=== PATIENT | male | born 1965 | race Caucasian/White ===

== ENCOUNTER 2024-01-24 12:01 | Emergency (ER) | payer OTHER ==
[~2024-01-24] VITALS: Ht 180.3 cm; Wt 95.3 kg
[2024-01-24 12:05] VITALS: BP_SYST 141; PULSE 87; RESP 18; TEMP 97.5
[2024-01-24 14:01] LABS: BASOPHILS % (AUTO) 0.3 % (0.0-2.0); EOSINOPHILS # (AUTO) 0.1 K/uL (0.0-0.4); EOSINOPHILS % (AUTO) 2.8 % (0.0-4.0); HEMATOCRIT 43.3 % (36-54); HEMOGLOBIN 15.1 g/dL (14.0-18.0); LYMPHOCYTES # (AUTO) 0.5 K/uL (1.0-5.5); LYMPHOCYTES % (AUTO) 17.8 % (20.5-51.5); MEAN CORPUSCULAR HEMOGLOBIN 33 pg (27-31); MEAN CORPUSCULAR HGB CONC 35 % (32-36); MEAN CORPUSCULAR VOLUME 95 fL (79.0-98.0); MONOCYTES # (AUTO) 0.3 K/uL (0.0-1.0); MONOCYTES % (AUTO) 10.1 % (1.7-9.3); RED BLOOD CELL COUNT(AUTO) 4.54 MIL/uL (4.2-6.2); WHITE BLOOD COUNT (AUTO) 2.9 K/uL (4.8-10.8)
[2024-01-24 14:21] LABS: INR 1.3 (0.80-1.20); PROTHROMBIN TIME 13.3 SECS (9.5-12.5)
[2024-01-24 14:24] LABS: ANION GAP 8 (5-15); CALCIUM 8.8 mg/dL (8.4-11.0); CARBON DIOXIDE 24 mmol/L (23-29); CHLORIDE 106 mmol/L (98-107); CREATININE 0.92 mg/dL (0.55-1.30); GFR AFRICAN AMERICAN 108 mL/min (>90); GLUCOSE 193 mg/dL (74-106); POTASSIUM 3.9 mmol/L (3.5-5.1); SODIUM SERUM 138 mmol/L (136-145); UREA NITROGEN, BLOOD 12 mg/dL (8-21)
[2024-01-24 14:25] LABS: ALCOHOL, BLOOD < 3 mg/dL (<10); GFR NON AFRICAN-AMERICAN 89 mL/min (>90)
[2024-01-24 14:57] LABS: PLATELET COUNT (AUTO) 39 K/uL (130-430)
[2024-01-24 15:40] LABS: CLARITY/URINE CLEAR (CLEAR); COLOR,URINE YELLOW (YELLOW); GLUCOSE,URINE TRACE (NEGATIVE); KETONES,URINE NEGATIVE (NEGATIVE); LEUKOCYTE ESTERASE ,URINE TRACE (NEGATIVE); NITRITE, URINE NEGATIVE (NEGATIVE); PROTEIN URINE NEGATIVE (NEGATIVE)
[2024-01-24 15:57] LABS: BLOOD, URINE TRACE (NEGATIVE)
[2024-01-24 15:58] LABS: BACTERIA,URINE FEW /HPF (None Seen); BILIRUBIN,URINE 1+ (NEGATIVE); UROBILINOGEN,URINE >=8 (0.2-1.0)
[2024-01-24 15:59] LABS: MUCUS,URINE 1+ /LPF (None Seen)
[2024-01-24 16:04] LABS: BARBITURATE, URINE NEGATIVE (NEG <=200); BENZODIAZEPINE, URINE NEGATIVE (NEG <=150); CANNABINOID, URINE POSITIVE (NEG <=50); COCAINE, URINE NEGATIVE (NEG <=150); METHAMPHETAMINES SCREEN,URINE NEGATIVE (NEG <=500); OPIATE, URINE NEGATIVE (NEG <=100); PHENCYCLIDINE SCREEN,URINE NEGATIVE (NEG <=25); UR TRICYCLIC ANTIDEPRESSANTS NEGATIVE (NEG <=300); URINE AMPHETAMINE NEGATIVE (NEG <=500); URINE METHADONE NEGATIVE (NEG <=200); URINE OXYCODONE SCREEN NEGATIVE (NEG <=100)
[2024-01-24] MEDS ORDERED: CEPH250C PO (16:49)
[2024-01-24] MEDS ORDERED: LACT10SO6 PO (16:49)
[2024-01-24 17:08] VITALS: BP_SYST 138; PULSE 87; RESP 18; TEMP 97.5
== END 2024-01-24 17:08 | disposition home or self-care (01) ==
LOC: SED 12:01
DX: K76.82 Hepatic encephalopathy (principal); N39.0 Urinary tract infection, site not specified; D69.6 Thrombocytopenia, unspecified; R41.0 Disorientation, unspecified; R53.83 Other fatigue; R06.02 Shortness of breath; Z79.899 Other long term (current) drug therapy; Z79.2 Long term (current) use of antibiotics
CPT/HCPCS: 99285; 70450; 71045; 80307; 80048; 81001; 82140; 85025; 85610; 85730; 87086; 84484; 36415; 93005; G0482; 81000; 81015